=== PATIENT | female | born 1935 | race Caucasian/White ===

== ENCOUNTER 2016-06-05 21:40 | Inpatient (IN) | payer MEDICARE, OTHER ==
[~2016-06-05] VITALS: Ht 149.9 cm; Wt 75.7 kg
[2016-06-05] MEDS ORDERED: DUONEB INH ONE ×2 (21:48→21:54)
[2016-06-05] MEDS ORDERED: NEB-ALBUTEROL 2.5 MG/3 ML INH ONE (21:57)
[2016-06-05 22:05] VITALS: RESP 43
[2016-06-05] MEDS ORDERED: SODIUM CHLORIDE 0.9% 1,000 ML ONE (23:28)
[2016-06-06] VITALS (31 sets, daily range): BP systolic 96–160; RESP 15–36; TEMP 97.3–98.3; Ht 149.9 cm; Wt 75.7 kg
[2016-06-06] MEDS ORDERED: Furosemide 40 MG/4 ML VIAL IV ONE (01:20)
[2016-06-06] MEDS ORDERED: SALINE FLUSH 10 ML FLUSH PRN (01:20)
[2016-06-06] MEDS ORDERED: PHARMACY TO DOSE LEVAQUIN IV SCH (01:20)
[2016-06-06] MEDS: **NOTE TO NURSE XX SCH ×2 (02:33→08:00)
[2016-06-06] MEDS: DUONEB INH SCH ×6 (03:09→23:02)
[2016-06-06] MEDS: SALINE FLUSH 10 ML FLUSH SCH ×3 (03:39→20:10)
[2016-06-06] MEDS: METHYLPRED SOD SUCC 125 MG/2 ML VIAL IV SCH ×2 (03:40→08:25)
[2016-06-06] MEDS ORDERED: LEVOFLOXACIN 750 MG/150 ML 150 ML IV SCH ×2 (05:01→09:00)
[2016-06-06] MEDS: SODIUM CHLORIDE 0.9% FLUSH BAG 500 ML IV SCH (06:00)
[2016-06-06] MEDS: LEVOTHYROXINE 0.025 MG TAB PO SCH (06:05)
[2016-06-06] MEDS: PANTOPRAZOLE 40 MG TAB PO SCH (06:05)
[2016-06-06] MEDS: Furosemide 40 MG/4 ML VIAL IV SCH (08:25)
[2016-06-06] MEDS ORDERED: PAXIL 37.5 MG PO SCH (09:00)
[2016-06-06] MEDS: NEB-BROVANA 15 MCG/2 ML INH SCH ×2 (12:00→18:47)
[2016-06-06] MEDS ORDERED: OXYCODONE/APAP 5/325 TAB PO PRN (12:00)
[2016-06-06] MEDS: METHYLPRED SOD SUCC 40 MG VIAL IV SCH ×3 (13:10→23:51)
[2016-06-06] MEDS: ROFLUMILAST 500 MCG TAB PO SCH (13:10)
[2016-06-06] MEDS: PAROXETINE HCL 20 MG TAB PO SCH (14:52)
[2016-06-06] MEDS: ACETAMINOPHEN 325 MG TAB PO PRN (14:54)
[2016-06-06] MEDS: OXYCODONE/APAP 5/325 TAB PO PRN (17:13)
[2016-06-06] MEDS: MONTELUKAST 10 MG TAB PO SCH (20:10)
[2016-06-06] MEDS: GABAPENTIN 600 MG TAB PO SCH (20:11)
[2016-06-06] MEDS ORDERED: TEMAZEPAM 15 MG CAP PO SCH (21:00)
[2016-06-06] MEDS: DOCUSATE SOD 100 MG CAP PO SCH (21:22)
[2016-06-07] VITALS (29 sets, daily range): BP systolic 94–136; RESP 15–34; TEMP 96.4–97.6
[2016-06-07] MEDS: DUONEB INH SCH ×6 (02:43→22:16)
[2016-06-07] MEDS: SODIUM CHLORIDE 0.9% FLUSH BAG 500 ML IV SCH (06:00)
[2016-06-07] MEDS: PANTOPRAZOLE 40 MG TAB PO SCH (06:17)
[2016-06-07] MEDS: METHYLPRED SOD SUCC 40 MG VIAL IV SCH ×4 (06:17→23:53)
[2016-06-07] MEDS: LEVOTHYROXINE 0.025 MG TAB PO SCH (06:17)
[2016-06-07] MEDS: NEB-BROVANA 15 MCG/2 ML INH SCH ×2 (06:22→18:37)
[2016-06-07] MEDS: SALINE FLUSH 10 ML FLUSH SCH ×2 (08:15→20:05)
[2016-06-07] MEDS: Losartan 25 MG TAB PO SCH (08:20)
[2016-06-07] MEDS: Furosemide 40 MG/4 ML VIAL IV SCH (08:20)
[2016-06-07] MEDS: DOCUSATE SOD 100 MG CAP PO SCH ×2 (08:20→20:05)
[2016-06-07] MEDS: SPIRONOLACTONE 25 MG TAB PO SCH (08:20)
[2016-06-07] MEDS: PAROXETINE HCL 20 MG TAB PO SCH (08:20)
[2016-06-07] MEDS: ROFLUMILAST 500 MCG TAB PO SCH (08:20)
[2016-06-07] MEDS: OXYCODONE/APAP 5/325 TAB PO PRN ×3 (09:17→23:01)
[2016-06-07] MEDS: MONTELUKAST 10 MG TAB PO SCH (20:04)
[2016-06-07] MEDS: GABAPENTIN 600 MG TAB PO SCH (20:04)
[2016-06-07] MEDS: LEVOFLOXACIN 750 MG/150 ML 150 ML IV SCH (20:04)
[2016-06-08] VITALS (27 sets, daily range): BP systolic 87–135; RESP 15–35; TEMP 95.9–97.4
[2016-06-08] MEDS: DUONEB INH SCH ×6 (02:19→22:15)
[2016-06-08] MEDS ORDERED: MISSING DOSE XX ONE (05:15)
[2016-06-08] MEDS: NEB-BROVANA 15 MCG/2 ML INH SCH ×2 (06:19→18:30)
[2016-06-08] MEDS: PANTOPRAZOLE 40 MG TAB PO SCH (06:33)
[2016-06-08] MEDS: SODIUM CHLORIDE 0.9% FLUSH BAG 500 ML IV SCH (06:33)
[2016-06-08] MEDS: LEVOTHYROXINE 0.025 MG TAB PO SCH (06:33)
[2016-06-08] MEDS: METHYLPRED SOD SUCC 40 MG VIAL IV SCH ×3 (06:33→20:05)
[2016-06-08] MEDS: SALINE FLUSH 10 ML FLUSH SCH ×2 (07:30→20:05)
[2016-06-08] MEDS: Furosemide 40 MG/4 ML VIAL IV SCH (08:42)
[2016-06-08] MEDS: SPIRONOLACTONE 25 MG TAB PO SCH (08:43)
[2016-06-08] MEDS: DOCUSATE SOD 100 MG CAP PO SCH ×2 (08:43→20:06)
[2016-06-08] MEDS: PAROXETINE HCL 20 MG TAB PO SCH (08:43)
[2016-06-08] MEDS: Losartan 25 MG TAB PO SCH (08:43)
[2016-06-08] MEDS: ROFLUMILAST 500 MCG TAB PO SCH (08:43)
[2016-06-08] MEDS: OXYCODONE/APAP 5/325 TAB PO PRN ×3 (11:58→22:27)
[2016-06-08] MEDS ORDERED: METHYLPRED SOD SUCC 40 MG VIAL IV SCH (16:00)
[2016-06-08] MEDS: MONTELUKAST 10 MG TAB PO SCH (20:05)
[2016-06-08] MEDS: GABAPENTIN 600 MG TAB PO SCH (20:05)
[2016-06-09] VITALS (28 sets, daily range): BP systolic 87–131; RESP 12–44; TEMP 95.9–97.6
[2016-06-09] MEDS: DUONEB INH SCH ×6 (02:19→22:13)
[2016-06-09] MEDS: METHYLPRED SOD SUCC 40 MG VIAL IV SCH ×3 (04:17→20:32)
[2016-06-09] MEDS: LEVOTHYROXINE 0.025 MG TAB PO SCH (06:31)
[2016-06-09] MEDS: PANTOPRAZOLE 40 MG TAB PO SCH (06:31)
[2016-06-09] MEDS: SODIUM CHLORIDE 0.9% FLUSH BAG 500 ML IV SCH (06:31)
[2016-06-09] MEDS: NEB-BROVANA 15 MCG/2 ML INH SCH ×2 (06:36→19:07)
[2016-06-09] MEDS: SALINE FLUSH 10 ML FLUSH SCH ×2 (07:43→20:33)
[2016-06-09] MEDS: Furosemide 40 MG/4 ML VIAL IV SCH (07:44)
[2016-06-09] MEDS: SPIRONOLACTONE 25 MG TAB PO SCH (07:44)
[2016-06-09] MEDS: DOCUSATE SOD 100 MG CAP PO SCH ×2 (07:44→20:33)
[2016-06-09] MEDS: Losartan 25 MG TAB PO SCH (07:45)
[2016-06-09] MEDS: PAROXETINE HCL 20 MG TAB PO SCH (07:45)
[2016-06-09] MEDS: ROFLUMILAST 500 MCG TAB PO SCH (07:45)
[2016-06-09] MEDS: OXYCODONE/APAP 5/325 TAB PO PRN ×4 (09:35→22:22)
[2016-06-09] MEDS: MONTELUKAST 10 MG TAB PO SCH (20:32)
[2016-06-09] MEDS: GABAPENTIN 600 MG TAB PO SCH (20:32)
[2016-06-09] MEDS: LEVOFLOXACIN 750 MG/150 ML 150 ML IV SCH (20:33)
[2016-06-10] VITALS (29 sets, daily range): BP systolic 83–141; RESP 14–29; TEMP 96–98.3
[2016-06-10] MEDS: DUONEB INH SCH ×6 (02:48→22:10)
[2016-06-10] MEDS: OXYCODONE/APAP 5/325 TAB PO PRN ×2 (03:18→13:54)
[2016-06-10] MEDS: SODIUM CHLORIDE 0.9% FLUSH BAG 500 ML IV SCH (06:13)
[2016-06-10] MEDS: LEVOTHYROXINE 0.025 MG TAB PO SCH (06:14)
[2016-06-10] MEDS: PANTOPRAZOLE 40 MG TAB PO SCH (06:14)
[2016-06-10] MEDS: NEB-BROVANA 15 MCG/2 ML INH SCH ×2 (06:22→18:32)
[2016-06-10] MEDS: METHYLPRED SOD SUCC 40 MG VIAL IV SCH (08:10)
[2016-06-10] MEDS: SALINE FLUSH 10 ML FLUSH SCH ×2 (08:10→20:31)
[2016-06-10] MEDS: SPIRONOLACTONE 25 MG TAB PO SCH (08:11)
[2016-06-10] MEDS: Furosemide 40 MG/4 ML VIAL IV SCH (08:11)
[2016-06-10] MEDS: DOCUSATE SOD 100 MG CAP PO SCH ×2 (08:11→20:30)
[2016-06-10] MEDS: ROFLUMILAST 500 MCG TAB PO SCH (08:12)
[2016-06-10] MEDS: PAROXETINE HCL 20 MG TAB PO SCH (08:12)
[2016-06-10] MEDS: Losartan 25 MG TAB PO SCH (08:12)
[2016-06-10] MEDS: EXCEDRIN EXTRA STR TAB PO PRN (17:30)
[2016-06-10] MEDS: MONTELUKAST 10 MG TAB PO SCH (20:30)
[2016-06-10] MEDS: GABAPENTIN 600 MG TAB PO SCH (20:31)
[2016-06-11] VITALS (24 sets, daily range): BP systolic 89–151; RESP 14–32; TEMP 97.2–97.6
[2016-06-11] MEDS: OXYCODONE/APAP 5/325 TAB PO PRN (00:10)
[2016-06-11] MEDS: NEB-NACL 3% 4 ML NEBU INH SCH ×5 (00:16→23:12)
[2016-06-11] MEDS: DUONEB INH SCH ×6 (02:22→23:12)
[2016-06-11] MEDS: LEVOTHYROXINE 0.025 MG TAB PO SCH (05:47)
[2016-06-11] MEDS: PANTOPRAZOLE 40 MG TAB PO SCH (05:47)
[2016-06-11] MEDS: SODIUM CHLORIDE 0.9% FLUSH BAG 500 ML IV SCH (05:47)
[2016-06-11] MEDS ORDERED: KCL CR 10 MEQ CAP PO ONE ×2 (06:05→07:15)
[2016-06-11] MEDS ORDERED: POTASSIUM CHLORIDE PREMIX 50 ML IV SCH (06:25)
[2016-06-11] MEDS: ONDANSETRON 4 MG VIAL IV PRN ×2 (06:29→19:53)
[2016-06-11] MEDS: NEB-BROVANA 15 MCG/2 ML INH SCH ×2 (06:58→18:25)
[2016-06-11] MEDS: PREDNISONE 20 MG TAB PO SCH (08:55)
[2016-06-11] MEDS: SALINE FLUSH 10 ML FLUSH SCH ×2 (08:55→19:53)
[2016-06-11] MEDS: SPIRONOLACTONE 25 MG TAB PO SCH (08:57)
[2016-06-11] MEDS: ROFLUMILAST 500 MCG TAB PO SCH (08:57)
[2016-06-11] MEDS: DOCUSATE SOD 100 MG CAP PO SCH ×2 (08:58→20:27)
[2016-06-11] MEDS: Losartan 25 MG TAB PO SCH (08:58)
[2016-06-11] MEDS: PAROXETINE HCL 20 MG TAB PO SCH (08:58)
[2016-06-11] MEDS: Furosemide 40 MG/4 ML VIAL IV SCH (08:59)
[2016-06-11] MEDS: EXCEDRIN EXTRA STR TAB PO PRN (10:46)
[2016-06-11] MEDS: BRINZOLAMIDE 1% EYE EACH SCH ×2 (12:03→20:27)
[2016-06-11] MEDS: BRIMONIDINE 0.15% DROPS EYE EACH SCH ×2 (12:03→20:27)
[2016-06-11] MEDS: Furosemide 40 MG TAB PO SCH (17:02)
[2016-06-11] MEDS: MONTELUKAST 10 MG TAB PO SCH (20:27)
[2016-06-11] MEDS: GABAPENTIN 600 MG TAB PO SCH (20:27)
[2016-06-11] MEDS ORDERED: LEVOFLOXACIN 750 MG TAB PO ONE (21:00)
[2016-06-11] MEDS ORDERED: PROMETHAZINE 25 MG/ML VIAL IV PRN (23:00)
[2016-06-12] VITALS (27 sets, daily range): BP systolic 91–138; RESP 14–33; TEMP 96.4–97.8
[2016-06-12] MEDS: DUONEB INH SCH ×6 (02:12→23:13)
[2016-06-12] MEDS: NEB-NACL 3% 4 ML NEBU INH SCH ×4 (06:00→23:13)
[2016-06-12] MEDS: NEB-BROVANA 15 MCG/2 ML INH SCH ×2 (06:00→18:55)
[2016-06-12] MEDS: SODIUM CHLORIDE 0.9% FLUSH BAG 500 ML IV SCH (06:25)
[2016-06-12] MEDS: LEVOTHYROXINE 0.025 MG TAB PO SCH (06:25)
[2016-06-12] MEDS: PANTOPRAZOLE 40 MG TAB PO SCH (06:25)
[2016-06-12] MEDS: BRINZOLAMIDE 1% EYE EACH SCH ×2 (09:03→21:14)
[2016-06-12] MEDS: BRIMONIDINE 0.15% DROPS EYE EACH SCH ×2 (09:03→21:13)
[2016-06-12] MEDS: SALINE FLUSH 10 ML FLUSH SCH ×2 (09:04→19:39)
[2016-06-12] MEDS: PREDNISONE 20 MG TAB PO SCH (09:04)
[2016-06-12] MEDS: DOCUSATE SOD 100 MG CAP PO SCH ×2 (09:04→21:14)
[2016-06-12] MEDS: SPIRONOLACTONE 25 MG TAB PO SCH (09:05)
[2016-06-12] MEDS: Losartan 25 MG TAB PO SCH (09:05)
[2016-06-12] MEDS: PAROXETINE HCL 20 MG TAB PO SCH (09:07)
[2016-06-12] MEDS: Furosemide 40 MG TAB PO SCH ×2 (09:07→17:03)
[2016-06-12] MEDS: ROFLUMILAST 500 MCG TAB PO SCH (09:07)
[2016-06-12] MEDS ORDERED: MISSING DOSE XX ONE ×2 (10:55→21:10)
[2016-06-12] MEDS: NEB-BUDESONIDE 0.5 MG INH SCH (18:55)
[2016-06-12] MEDS: MONTELUKAST 10 MG TAB PO SCH (21:14)
[2016-06-12] MEDS: GABAPENTIN 600 MG TAB PO SCH (21:14)
[2016-06-12] MEDS: EXCEDRIN EXTRA STR TAB PO PRN (21:19)
[2016-06-13] VITALS (17 sets, daily range): BP systolic 92–135; RESP 15–28; TEMP 97.2–98.3
[2016-06-13] MEDS: DUONEB INH SCH ×6 (02:26→22:23)
[2016-06-13] MEDS: SODIUM CHLORIDE 0.9% FLUSH BAG 500 ML IV SCH (06:00)
[2016-06-13] MEDS: NEB-BUDESONIDE 0.5 MG INH SCH ×2 (06:04→18:29)
[2016-06-13] MEDS: NEB-BROVANA 15 MCG/2 ML INH SCH ×2 (06:04→18:29)
[2016-06-13] MEDS: NEB-NACL 3% 4 ML NEBU INH SCH ×4 (06:04→22:23)
[2016-06-13] MEDS: LEVOTHYROXINE 0.025 MG TAB PO SCH (07:09)
[2016-06-13] MEDS: PANTOPRAZOLE 40 MG TAB PO SCH (07:09)
[2016-06-13] MEDS: SALINE FLUSH 10 ML FLUSH SCH ×2 (08:49→20:18)
[2016-06-13] MEDS: BRIMONIDINE 0.15% DROPS EYE EACH SCH ×2 (08:59→20:19)
[2016-06-13] MEDS: DOCUSATE SOD 100 MG CAP PO SCH ×2 (09:01→20:18)
[2016-06-13] MEDS: BRINZOLAMIDE 1% EYE EACH SCH ×2 (09:01→20:19)
[2016-06-13] MEDS: SPIRONOLACTONE 25 MG TAB PO SCH (09:01)
[2016-06-13] MEDS: PAROXETINE HCL 20 MG TAB PO SCH (09:02)
[2016-06-13] MEDS: Losartan 25 MG TAB PO SCH (09:02)
[2016-06-13] MEDS: PREDNISONE 20 MG TAB PO SCH (09:02)
[2016-06-13] MEDS: Furosemide 40 MG TAB PO SCH ×2 (09:03→16:02)
[2016-06-13] MEDS: ROFLUMILAST 500 MCG TAB PO SCH (09:03)
[2016-06-13] MEDS: GABAPENTIN 600 MG TAB PO SCH (20:18)
[2016-06-13] MEDS: MONTELUKAST 10 MG TAB PO SCH (20:18)
[2016-06-14] VITALS (8 sets, daily range): BP systolic 91–121; RESP 16–20; TEMP 97.8–98.7
[2016-06-14] MEDS: DUONEB INH SCH ×6 (02:47→22:51)
[2016-06-14] MEDS: SODIUM CHLORIDE 0.9% FLUSH BAG 500 ML IV SCH (03:47)
[2016-06-14] MEDS ORDERED: MISSING DOSE XX ONE ×2 (05:45→20:55)
[2016-06-14] MEDS: PANTOPRAZOLE 40 MG TAB PO SCH (06:14)
[2016-06-14] MEDS: LEVOTHYROXINE 0.025 MG TAB PO SCH (06:14)
[2016-06-14] MEDS: NEB-BROVANA 15 MCG/2 ML INH SCH ×2 (06:39→18:35)
[2016-06-14] MEDS: NEB-NACL 3% 4 ML NEBU INH SCH ×4 (06:39→22:51)
[2016-06-14] MEDS: NEB-BUDESONIDE 0.5 MG INH SCH ×2 (06:39→18:35)
[2016-06-14] MEDS: SALINE FLUSH 10 ML FLUSH SCH ×2 (08:48→20:56)
[2016-06-14] MEDS: BRIMONIDINE 0.15% DROPS EYE EACH SCH ×2 (08:49→20:56)
[2016-06-14] MEDS: BRINZOLAMIDE 1% EYE EACH SCH ×2 (08:49→20:56)
[2016-06-14] MEDS: PAROXETINE HCL 20 MG TAB PO SCH (08:50)
[2016-06-14] MEDS: SPIRONOLACTONE 25 MG TAB PO SCH (08:50)
[2016-06-14] MEDS: Losartan 25 MG TAB PO SCH (08:50)
[2016-06-14] MEDS: DOCUSATE SOD 100 MG CAP PO SCH ×2 (08:50→20:57)
[2016-06-14] MEDS: Furosemide 40 MG TAB PO SCH ×2 (08:50→16:36)
[2016-06-14] MEDS: PREDNISONE 20 MG TAB PO SCH (08:50)
[2016-06-14] MEDS: ROFLUMILAST 500 MCG TAB PO SCH (08:50)
[2016-06-14] MEDS: OXYCODONE/APAP 5/325 TAB PO PRN ×3 (08:56→23:03)
[2016-06-14] MEDS: EXCEDRIN EXTRA STR TAB PO PRN (16:37)
[2016-06-14] MEDS: MONTELUKAST 10 MG TAB PO SCH (20:57)
[2016-06-14] MEDS: GABAPENTIN 600 MG TAB PO SCH (21:12)
[2016-06-15] VITALS (8 sets, daily range): BP systolic 102–126; RESP 16–20; TEMP 98–98.9
[2016-06-15] MEDS: DUONEB INH SCH ×6 (02:42→22:18)
[2016-06-15] MEDS: SODIUM CHLORIDE 0.9% FLUSH BAG 500 ML IV SCH (03:50)
[2016-06-15] MEDS: EXCEDRIN EXTRA STR TAB PO PRN (06:15)
[2016-06-15] MEDS: LEVOTHYROXINE 0.025 MG TAB PO SCH (06:15)
[2016-06-15] MEDS: PANTOPRAZOLE 40 MG TAB PO SCH (06:15)
[2016-06-15] MEDS: NEB-BUDESONIDE 0.5 MG INH SCH ×2 (07:00→18:46)
[2016-06-15] MEDS: NEB-BROVANA 15 MCG/2 ML INH SCH ×2 (07:00→18:45)
[2016-06-15] MEDS: NEB-NACL 3% 4 ML NEBU INH SCH ×4 (07:01→22:18)
[2016-06-15] MEDS: SPIRONOLACTONE 25 MG TAB PO SCH (08:34)
[2016-06-15] MEDS: DOCUSATE SOD 100 MG CAP PO SCH ×2 (08:34→20:01)
[2016-06-15] MEDS: PAROXETINE HCL 20 MG TAB PO SCH (08:34)
[2016-06-15] MEDS: Losartan 25 MG TAB PO SCH (08:34)
[2016-06-15] MEDS: PREDNISONE 20 MG TAB PO SCH (08:34)
[2016-06-15] MEDS: ROFLUMILAST 500 MCG TAB PO SCH (08:34)
[2016-06-15] MEDS: BRINZOLAMIDE 1% EYE EACH SCH ×2 (08:35→20:01)
[2016-06-15] MEDS: BRIMONIDINE 0.15% DROPS EYE EACH SCH ×2 (08:35→20:00)
[2016-06-15] MEDS: Furosemide 40 MG TAB PO SCH ×2 (08:35→16:44)
[2016-06-15] MEDS: SALINE FLUSH 10 ML FLUSH SCH ×2 (08:36→20:06)
[2016-06-15] MEDS: CETIRIZINE 10 MG TAB PO SCH (14:20)
[2016-06-15] MEDS: FLUTICASONE 0.05% NA BTL NARE EACH SCH (15:14)
[2016-06-15] MEDS ORDERED: MISSING DOSE XX ONE ×2 (19:55)
[2016-06-15] MEDS: GABAPENTIN 600 MG TAB PO SCH (20:01)
[2016-06-15] MEDS: MONTELUKAST 10 MG TAB PO SCH (20:01)
[2016-06-16] VITALS (8 sets, daily range): BP systolic 89–125; RESP 16–24; TEMP 97.8–98.9
[2016-06-16] MEDS: DUONEB INH SCH ×6 (02:28→22:30)
[2016-06-16] MEDS: SODIUM CHLORIDE 0.9% FLUSH BAG 500 ML IV SCH (05:00)
[2016-06-16] MEDS: LEVOTHYROXINE 0.025 MG TAB PO SCH (06:27)
[2016-06-16] MEDS: PANTOPRAZOLE 40 MG TAB PO SCH (06:28)
[2016-06-16] MEDS: ACETAMINOPHEN 325 MG TAB PO PRN (07:44)
[2016-06-16] MEDS: OXYCODONE/APAP 5/325 TAB PO PRN (07:49)
[2016-06-16] MEDS: NEB-BUDESONIDE 0.5 MG INH SCH ×2 (07:54→19:08)
[2016-06-16] MEDS: NEB-BROVANA 15 MCG/2 ML INH SCH ×2 (07:54→19:08)
[2016-06-16] MEDS: NEB-NACL 3% 4 ML NEBU INH SCH ×4 (07:54→22:30)
[2016-06-16] MEDS ORDERED: MISSING DOSE XX ONE (08:10)
[2016-06-16] MEDS: SALINE FLUSH 10 ML FLUSH SCH ×2 (08:14→20:58)
[2016-06-16] MEDS: BRIMONIDINE 0.15% DROPS EYE EACH SCH ×2 (08:15→20:58)
[2016-06-16] MEDS: BRINZOLAMIDE 1% EYE EACH SCH ×2 (08:15→20:58)
[2016-06-16] MEDS: SPIRONOLACTONE 25 MG TAB PO SCH (08:18)
[2016-06-16] MEDS: FLUTICASONE 0.05% NA BTL NARE EACH SCH (08:18)
[2016-06-16] MEDS: ROFLUMILAST 500 MCG TAB PO SCH (08:19)
[2016-06-16] MEDS: CETIRIZINE 10 MG TAB PO SCH (08:19)
[2016-06-16] MEDS: Losartan 25 MG TAB PO SCH (08:19)
[2016-06-16] MEDS: Furosemide 40 MG TAB PO SCH ×2 (08:19→17:25)
[2016-06-16] MEDS: DOCUSATE SOD 100 MG CAP PO SCH ×2 (08:19→20:58)
[2016-06-16] MEDS: PAROXETINE HCL 20 MG TAB PO SCH (08:19)
[2016-06-16] MEDS: PREDNISONE 20 MG TAB PO SCH (09:34)
[2016-06-16] MEDS: EXCEDRIN EXTRA STR TAB PO PRN (15:45)
[2016-06-16] MEDS: ONDANSETRON 4 MG VIAL IV PRN (18:43)
[2016-06-16] MEDS: MONTELUKAST 10 MG TAB PO SCH (20:58)
[2016-06-16] MEDS: GABAPENTIN 600 MG TAB PO SCH (20:58)
[2016-06-17 00:22] VITALS: RESP 20
[2016-06-17] MEDS: OXYCODONE/APAP 5/325 TAB PO PRN (02:28)
[2016-06-17] MEDS: DUONEB INH SCH ×3 (02:32→10:31)
[2016-06-17 03:30] VITALS: BP_SYST 109; RESP 18; TEMP 98.2
[2016-06-17] MEDS: NEB-NACL 3% 4 ML NEBU INH SCH ×2 (06:43→10:32)
[2016-06-17] MEDS: NEB-BROVANA 15 MCG/2 ML INH SCH (06:44)
[2016-06-17] MEDS: NEB-BUDESONIDE 0.5 MG INH SCH (06:44)
[2016-06-17] MEDS: SODIUM CHLORIDE 0.9% FLUSH BAG 500 ML IV SCH (06:53)
[2016-06-17] MEDS: PANTOPRAZOLE 40 MG TAB PO SCH (06:54)
[2016-06-17] MEDS: LEVOTHYROXINE 0.025 MG TAB PO SCH (06:55)
[2016-06-17 07:56] VITALS: BP_SYST 125; TEMP 97.9
[2016-06-17 07:57] VITALS: RESP 20
[2016-06-17] MEDS: BRINZOLAMIDE 1% EYE EACH SCH (08:13)
[2016-06-17] MEDS: BRIMONIDINE 0.15% DROPS EYE EACH SCH (08:14)
[2016-06-17] MEDS: SALINE FLUSH 10 ML FLUSH SCH (08:14)
[2016-06-17] MEDS: FLUTICASONE 0.05% NA BTL NARE EACH SCH (08:15)
[2016-06-17] MEDS: PREDNISONE 20 MG TAB PO SCH (08:15)
[2016-06-17] MEDS: DOCUSATE SOD 100 MG CAP PO SCH (08:15)
[2016-06-17] MEDS: Losartan 25 MG TAB PO SCH (08:15)
[2016-06-17] MEDS: SPIRONOLACTONE 25 MG TAB PO SCH (08:16)
[2016-06-17] MEDS: CETIRIZINE 10 MG TAB PO SCH (08:16)
[2016-06-17] MEDS: Furosemide 40 MG TAB PO SCH (08:16)
[2016-06-17] MEDS: ROFLUMILAST 500 MCG TAB PO SCH (08:17)
[2016-06-17] MEDS: PAROXETINE HCL 20 MG TAB PO SCH (08:17)
[2016-06-17 10:51] VITALS: BP_SYST 129; RESP 20; TEMP 97.9
== END 2016-06-17 11:39 | DRG 291 ==
LOC: ENRESERVDT → CANRESERV → ENRESERVTM → ER 21:40 → EMR 06-06 01:19 → ENPENDDIS 06-06 01:19 → ICU 06-06 02:59 → PCU 06-13 11:28
PROVIDERS: ADMIT Internal Medicine; ATTEND Internal Medicine
DX: I50.41 Acute combined systolic (congestive) and diastolic (congestive) heart failure (principal); J96.02 Acute respiratory failure with hypercapnia; J18.9 Pneumonia, unspecified organism; G92 Toxic encephalopathy; J96.01 Acute respiratory failure with hypoxia; N17.9 Acute kidney failure, unspecified; J44.0 Chronic obstructive pulmonary disease with (acute) lower respiratory infection; J44.1 Chronic obstructive pulmonary disease with (acute) exacerbation; I11.0 Hypertensive heart disease with heart failure; E03.9 Hypothyroidism, unspecified; I10 Essential (primary) hypertension; R51 Headache; R00.0 Tachycardia, unspecified; G25.81 Restless legs syndrome; Z86.73 Personal history of transient ischemic attack (TIA), and cerebral infarction without residual deficits; Z82.49 Family history of ischemic heart disease and other diseases of the circulatory system
CPT/HCPCS: 36415; 36600; 70450; 71010; 80048; 80051; 80053; 82330; 82553; 82785; 82803; 83605; 83735; 83880; 84100; 84484; 85007; 85025; 85027; 85379; 85610; 87040; 87071; 93005; 93306; 94640; 94660; 94664; 94799; 96361; 96365; 96366; 99222; 99232; 99233; 99239; 99291